=== PATIENT | male | born 1985 | race Caucasian/White ===

== ENCOUNTER → 2019-08-01 | Outpatient (CLI) | payer BC ==
--- NOTE | 2019-08-01 23:29 | MR ---
EXAMINATION TYPE: MR lumbar spine wo/w con DATE OF EXAM: 08/01/2019 COMPARISON: None HISTORY: Sprain of ligaments of lumbar spine TECHNIQUE: Multiplanar, multisequence images of the lumbar spine were acquired utilizing 9.5 mL intravenous Gada vist gadolinium contrast. Lumbar vertebra have normal alignment. Disc spaces are fairly normal. There is no compression fractur e. There is no lumbar or spinal mass. The neuroforamina are fairly well-maintained. There is a small posterior disc bulge at L4-5. There is no spinal stenosis. Upper sacroiliac joints appear intact. The contrast images show no pathologic enhancement. There is nonanatomic increased signal in the right paraspinal region on the L4-5 level. This is thoug ht to be artifactual. IMPRESSION: Minute posterior disc bulging at L4-5. Otherwise negative exam.
== END | disposition home or self-care (01) ==
LOC: RADMRIMAIN 15:26
PROVIDERS: ATTEND Family Medicine
DX: M51.86 Other intervertebral disc disorders, lumbar region (principal)
CPT/HCPCS: 72158; A9585

== ENCOUNTER 2019-08-13 03:04 | Emergency (ER) | payer BC, OTHER ==
[2019-08-13 03:14] VITALS: BP 129/81; PULSE 64; RESP 20; TEMP 97.9
[2019-08-13] MEDS ORDERED: KETOROLAC 30 MG/ML 1 ML VIAL IM STA (03:25)
[2019-08-13] MEDS ORDERED: ACET/COD 300 MG/30 MG STARTER PACK 6 TAB BTL PO STA (03:25)
[2019-08-13] MEDS ORDERED: PENICILLIN VK 500MG STARTER 4 TAB BTL PO STA (03:26)
--- NOTE | 2019-08-13 03:28 | ED ---
ENT HPI - General Chief complaint: Dental/Oral Stated complaint: Oral/Throat Pain Time Seen by Provider: 08/13/19 03:22 Source: patient Mode of arrival: ambulatory Limitations: no limitations - History of Present Illness Initial comments: 33-year-old male patient presents to the emergency department today for evaluation of left-sided dental pain. Patient states he started having dental pain approximately 2 days ago. States this evening he developed swelling to the left side of his face. States he is having some increased pain with opening and closing his mouth. Denies any difficulty swallowing. Denies nausea or vomiting. Denies fever or chills. Patient states he does have a broken tooth in the back. States his dental insurance kicks in in August so he has been unable to go to the dentist. States he has been taking Tylenol Motrin with little relief. Patient denies any recent rash, shortness breath, chest pain, abdominal pain, diarrhea, constipation, back pain, numbness, tingling, dizziness, weakness, hematuria, dysuria, urinary urgency, urinary frequency, headache, visual changes, or any other complaints. - Related Data Previous Rx's Medication Instructions Recorded Naproxen [Naprosyn] 500 mg PO Q12HR PRN #20 tab 08/31/15 Naproxen [EC-Naprosyn] 500 mg PO BID PRN #30 tablet. 08/13/19 Penicillin V Potassium [Pen Vee K] 500 mg PO Q6H #40 tablet 08/13/19 Allergies Allergy/AdvReac Type Severity Reaction Status Date / Time No Known Allergies Allergy Verified 08/13/19 03:14 Review of Systems ROS Statement: Those systems with pertinent positive or pertinent negative responses have been documented in the HPI. ROS Other: All systems not noted in ROS Statement are negative. Past Medical History Past Medical History: No Reported History History of Any Multi-Drug Resistant Organisms: None Reported Past Surgical History: No Surgical Hx Reported Past Psychological History: No Psychological Hx Reported Smoking Status: Never smoker Past Alcohol Use History: None Reported Past Drug Use History: None Reported General Exam Limitations: no limitations General appearance: alert, in no apparent distress, other (Physical well- developed, well-nourished adult male patient in no acute distress. Vital signs upon presentation are temperature 97.9F, pulse 64, respirations 20, blood pressure 129/81, pulse ox 98% on room air.) ENT exam: Present: mucous membranes moist. Absent: normal exam, normal oropharynx (Left rear Molar is fractured. There is surrounding gingival erythema and hyperplasia. No evidence of drainable abscess.) Respiratory exam: Present: normal lung sounds bilaterally. Absent: respiratory distress, wheezes, rales, rhonchi, stridor Cardiovascular Exam: Present: regular rate, normal rhythm, normal heart sounds. Absent: systolic murmur, diastolic murmur, rubs, gallop, clicks Neurological exam: Present: alert, oriented X3, CN II-XII intact Psychiatric exam: Present: normal affect, normal mood Skin exam: Present: warm, dry, intact, normal color. Absent: rash Course Vital Signs 08/13/19 03:12 Temperature 97.9 F Pulse Rate 64 Respiratory 20 Rate Blood Pressure 129/81 O2 Sat by Pulse 98 Oximetry Medical Decision Making - Medical Decision Making 33-year-old male patient presented to the emergency department today for e valuation of left-sided dental pain. Physical examination did reveal fractured tooth to the left rear molar. Surrounding gingival erythema and hyperplasia. No evidence of drainable abscess. There is left-sided facial swelling. He is afebrile normal vital signs. He'll be given pain medication here in the emergency department. Started on penicillin. He is given a dental clinic follow-up. Return parameters were discussed in detail. He verbalizes understanding and agrees with this plan. Disposition Clinical Impression: Dental abscess Disposition: HOME SELF-CARE Condition: Good Instructions (If sedation given, give patient instructions): Dental Abscess (ED) Additional Instructions: Complete antibiotic prescription and full. Take medications as directed for pain relief. Follow-up with the dentist as soon as possible. Follow up with your primary care physician for recheck in 1-2 days. Return to the emergency department immediately for any new, worsening, or concerning symptoms. Please follow up with the [facility] dental clinic. [facility] [place] [address]. Phone number for new patients or [phone] for existing patients. OR [facility]. Must pay for x-rays then services are free. Call for an appoitnment. Prescriptions: Naproxen [EC-Naprosyn] 500 mg PO BID PRN #30 tablet.dr MARCIAL Reason: Pain Penicillin V Potassium [Pen Vee K] 500 mg PO Q6H #40 tablet Is patient prescribed a controlled substance at d/c from ED?: No Referrals: Osito Andrew MD [Primary Care Provider] - 1-2 days Time of Disposition: 03:27
== END 2019-08-13 04:06 | disposition home or self-care (01) ==
LOC: EC 03:04
DX: K04.7 Periapical abscess without sinus (principal)
CPT/HCPCS: 99282; 96372; J1885

== ENCOUNTER 2021-03-22 22:16 | Emergency (ER) | payer OTHER ==
[2021-03-22] MEDS ORDERED: MORPHINE SULFATE 4 MG/ML SYRINGE IV STA (22:37)
[2021-03-22] MEDS ORDERED: SODIUM CHLORIDE 0.9% 1,000 ML IV STA (22:37)
--- NOTE | 2021-03-22 22:38 | ED ---
Abdominal Pain HPI - General Chief Complaint: Abdominal Pain Stated Complaint: upper abdominal pain Time Seen by Provider: 03/22/21 22:37 Source: patient Mode of arrival: ambulatory Limitations: no limitations - Related Data Previous Rx's Medication Instructions Recorded Naproxen [Naprosyn] 500 mg PO Q12HR PRN #20 tab 08/31/15 Naproxen [EC-Naprosyn] 500 mg PO BID PRN #30 tablet. 08/13/19 Penicillin V Potassium [Pen Vee K] 500 mg PO Q6H #40 tablet 08/13/19 Allergies Allergy/AdvReac Type Severity Reaction Status Date / Time No Known Allergies Allergy Verified 03/22/21 22:23 Review of Systems ROS Statement: Those systems with pertinent positive or pertinent negative responses have been documented in the HPI. ROS Other: All systems not noted in ROS Statement are negative. Past Medical History Past Medical History: No Reported History Additional Past Medical History / Comment(s): lt spontaneous pneumothorax History of Any Multi-Drug Resistant Organisms: None Reported Past Surgical History: No Surgical Hx Reported Past Psychological History: No Psychological Hx Reported Smoking Status: Never smoker Past Alcohol Use History: None Reported Past Drug Use History: None Reported General Exam Limitations: no limitations Course Vital Signs 03/22/21 22:18 Temperature 98.1 F Pulse Rate 88 Respiratory 20 Rate Blood Pressure 135/75 O2 Sat by Pulse 99 Oximetry Medical Decision Making - Lab Data Result diagrams: 03/22/21 23:15 03/22/21 23:15 Lab Results 03/22/21 03/22/21 03/22/21 Range/Units 23:15 23:15 23:15 WBC 8.4 (3.8-10.6) k/uL RBC 5.25 (4.30-5.90) m/uL Hgb 16.0 (13.0-17.5) gm/dL Hct 45.6 (39.0-53.0) % MCV 86.7 (80.0-100.0) fL MCH 30.4 (25.0-35.0) pg MCHC 35.0 (31.0-37.0) g/dL RDW 12.7 (11.5-15.5) % Plt Count 263 (150-450) k/uL MPV 7.3 Neutrophils % 57 % Lymphocytes % 33 % Monocytes % 5 % Eosinophils % 3 % Basophils % 1 % Neutrophils # 4.8 (1.3-7.7) k/uL Lymphocytes # 2.8 (1.0-4.8) k/uL Monocytes # 0.4 (0-1.0) k/uL Eosinophils # 0.2 (0-0.7) k/uL Basophils # 0.1 (0-0.2) k/uL Sodium 140 (137-145) mmol/L Potassium 4.2 (3.5-5.1) mmol/L Chloride 106 (98-107) mmol/L Carbon Dioxide 27 (22-30) mmol/L Anion Gap 7 mmol/L BUN 15 (9-20) mg/dL Creatinine 1.02 (0.66-1.25) mg/dL Est GFR (CKD-EPI)AfAm >90 (>60 ml/min/1.73 sqM) Est GFR (CKD-EPI)NonAf >90 (>60 ml/min/1.73 sqM) Glucose 135 H (74-99) mg/dL Calcium 9.5 (8.4-10.2) mg/dL Total Bilirubin 0.3 (0.2-1.3) mg/dL AST 35 (17-59) U/L ALT 31 (4-49) U/L Alkaline Phosphatase 64 (38-126) U/L Total Protein 7.1 (6.3-8.2) g/dL Albumin 4.4 (3.5-5.0) g/dL Amylase 39 (30-110) U/L Lipase 139 (23-300) U/L Urine Color Yellow Urine Appearance Clear (Clear) Urine pH 5.5 (5.0-8.0) Ur Specific [place] 1.026 (1.001-1.035) Urine Protein Trace H (Negative) Urine Glucose (UA) Negative (Negative) Urine Ketones Negative (Negative) Urine Blood Negative (Negative) Urine Nitrite Negative (Negative) Urine Bilirubin Negative (Negative) Urine Urobilinogen <2.0 (<2.0) mg/dL Ur Leukocyte Esterase Negative (Negative) Disposition Clinical Impression: Abdominal pain, Gastritis Disposition: HOME SELF-CARE Condition: Good Instructions (If sedation given, give patient instructions): Gastritis (ED) Is patient prescribed a controlled substance at d/c from ED?: No Referrals: None,Stated [Primary Care Provider] - 1-2 days
[2021-03-22 23:26] LABS: Appearance,Urine Clear (Clear); Basophils # (A) 0.1 k/uL (0-0.2); Basophils % (A) 1 %; Bilirubin,Urine Negative (Negative); Blood,Urine Negative (Negative); Color,Urine Yellow; Eosinophils # (A) 0.2 k/uL (0-0.7); Eosinophils % (A) 3 %; Glucose,Urine (UA) Negative (Negative); HCT 45.6 % (39.0-53.0); Ketones,Urine Negative (Negative); Leukocyte Esterase,Urine Negative (Negative); Lymphocytes # (A) 2.8 k/uL (1.0-4.8); Lymphocytes % (A) 33 %; MCH 30.4 pg (25.0-35.0); MCV 86.7 fL (80.0-100.0); Mean Platelet Volume 7.3; Monocytes # (A) 0.4 k/uL (0-1.0); Monocytes % (A) 5 %; Neutrophils # (A) 4.8 k/uL (1.3-7.7); Neutrophils % (A) 57 %; Nitrite,Urine Negative (Negative); PH, Urine 5.5 (5.0-8.0); Platelet Count 263 k/uL (150-450); Protein,Urine Trace (Negative); RBC 5.25 m/uL (4.30-5.90); RDW 12.7 % (11.5-15.5); Specific Gravity,Urine 1.026 (1.001-1.035); Urobilinogen,Urine <2.0 mg/dL (<2.0); WBC 8.4 k/uL (3.8-10.6)
[2021-03-22 23:36] LABS: ALT 31 U/L (4-49); AST 35 U/L (17-59); African American GFR (CKD) >90 (>60 ml/min/1.73 sqM); Albumin 4.4 g/dL (3.5-5.0); Alkaline Phosphatase 64 U/L (38-126); Amylase 39 U/L (30-110); Anion Gap 7 mmol/L; Blood Urea Nitrogen 15 mg/dL (9-20); Calcium 9.5 mg/dL (8.4-10.2); Carbon Dioxide 27 mmol/L (22-30); Chloride 106 mmol/L (98-107); Glucose 135 mg/dL (74-99); Lipase 139 U/L (23-300); Non-African American GFR(CKD) >90 (>60 ml/min/1.73 sqM); Potassium 4.2 mmol/L (3.5-5.1); Sodium 140 mmol/L (137-145); Total Bilirubin 0.3 mg/dL (0.2-1.3); Total Protein 7.1 g/dL (6.3-8.2)
--- NOTE | 2021-03-23 00:14 | US ---
EXAMINATION TYPE: US gallbladder DATE OF EXAM: 03/23/2021 COMPARISON: NONE CLINICAL HISTORY: abdominal pain. abd pain after eating for over 1 month, last ate 5hrs prior to this exam EXAM MEASUREMENTS: Liver Length: 14.0 cm Gallbladder Wall: 0.2 cm CBD: 0.5 cm Right Kidney: 10.3 x 5.0 x 5.7 cm *8ocerlying bowel gas limits exam Pancreas: not seen due to bowel gas Liver: limited intercostal views appear wnl Gallbladder: wnl Evidence for sonographic Avery's sign: no CBD: wnl Right Kidney: wnl IMPRESSION: No focal liver defect. No gallstones or dilated ducts.
[2021-03-23] MEDS ORDERED: PANTOPRAZOLE 40 MG/10 ML VIAL IVP STA (00:21)
[2021-03-23] MEDS ORDERED: MAG HYDROX/AL HYDROX/SIMETH 30 ML, HYOSCYAMINE ELIXIR 10 ML PO STA ×2 (00:21)
[2021-03-23 01:08] VITALS: RESP 18
--- NOTE | 2021-03-23 01:17 | CT ---
EXAMINATION TYPE: CT abdomen pelvis w con DATE OF EXAM: 03/23/2021 COMPARISON: HISTORY: Upper Abd Pain CT DLP: 1152.90 mGycm Automated exposure control for dose reduction was used. CONTRAST: Performed with IV Contrast, patient injected with 100 mL of Isovue 300. Images obtained from the diaphragm to the floor the pelvis with IV contrast. Lung bases are clear of consolidation. There is no pleural effusion. Heart size is fairly normal. The re is no pericardial effusion. Liver spleen stomach pancreas gallbladder appear normal. Bile ducts ar e not dilated. There is no adrenal mass. Kidneys show satisfactory contrast opacification. There is no hydronephrosi s. Ureters are not dilated. There is no retroperitoneal adenopathy. Appendix is posterior and appears normal. Bladder distends smoothly. There is no inguinal hernia. There is no free fluid in the pelvis . There is no evidence of pelvic mass. There is no mesenteric edema. There is no ascites or free air. There is no bowel obstruction. Lumbar vertebra have normal alignment. Posterior elements are intact. There is no compression fractur e. The bony pelvis is intact. The hip joints are intact. IMPRESSION: Negative CT scan abdomen and pelvis. Normal appendix.
[2021-03-23 01:53] VITALS: BP 122/88; PULSE 83; TEMP 97.6
== END 2021-03-23 01:45 | disposition home or self-care (01) ==
LOC: EC 22:16
DX: K29.70 Gastritis, unspecified, without bleeding (principal)
CPT/HCPCS: 36415; 80053; 82150; 83690; 85025; 81003; 76705; 74177; 99284; 96374; 96375; 96361 ×2; J2270; C9113; Q9967

== ENCOUNTER → 2021-07-28 | Outpatient (CLI) | payer OTHER ==
--- NOTE | 2021-07-28 18:08 | US ---
EXAMINATION TYPE: US extremity nonvasc complete LT DATE OF EXAM: 07/28/2021 COMPARISON: NONE CLINICAL HISTORY: 35-year-old male M25.562 Pain in left knee. x 8 years TECHNIQUE: Multiple sonographic images of the left popliteal fossa at the site of patient's pain. Findings: No mass or Bakers cyst seen in left popliteal space (area of pain) IMPRESSION: No Montano's cyst or other mass identified in the left popliteal fossa which corresponds to the site of patient's pain. If symptoms persist, consider MRI.
== END | disposition home or self-care (01) ==
LOC: RADUSWWP 14:09
PROVIDERS: ATTEND Physician Assistant
DX: M25.562 Pain in left knee (principal)

== ENCOUNTER 2022-10-03 15:44 | Emergency (ER) | payer OTHER ==
[2022-10-03 16:16] VITALS: BP 133/69; PULSE 108; RESP 22; TEMP 99.5
--- NOTE | 2022-10-03 18:08 | XR ---
EXAMINATION TYPE: XR chest 2V DATE OF EXAM: 10/03/2022 COMPARISON: NONE HISTORY: Short of breath TECHNIQUE: 2 views FINDINGS: Heart and mediastinum are normal. Lungs are clear. Diaphragm is normal. Bony thorax is inta ct IMPRESSION: Normal chest.
--- NOTE | 2022-10-03 19:30 | ED ---
URI HPI - General Chief Complaint: Upper Respiratory Infection Stated Complaint: Cough Time Seen by Provider: 10/03/22 17:45 Source: patient Mode of arrival: ambulatory Limitations: no limitations - History of Present Illness Initial Comments: Patient is a 37-year-old male presents to the emergency department with a chief complaint of cough. Patient reports a sinus infection for the past 10 days. With past couple days he has developed a productive cough with yellow sputum. He reports fever. Has not taken any Tylenol or Motrin today. Denies chest pain, shortness of breath, nausea, vomiting. Denies tobacco use. Denies history of asthma and COPD. - Related Data Previous Rx's Medication Instructions Recorded Naproxen [Naprosyn] 500 mg PO Q12HR PRN #20 tab 08/31/15 Naproxen [EC-Naprosyn] 500 mg PO BID PRN #30 tablet. 08/13/19 Penicillin V Potassium [Pen Vee K] 500 mg PO Q6H #40 tablet 08/13/19 Amoxic-Pot Clav 875-125Mg 1 tab PO BID 7 Days #14 tab 10/03/22 [Augmentin 875-125] Ibuprofen [Motrin] 800 mg PO Q6HR PRN #30 tab 10/03/22 methylPREDNISolone Dose Pack 4 mg PO DIRECTED #21 tab 10/03/22 [Medrol Dose Pack] Allergies Allergy/AdvReac Type Severity Reaction Status Date / Time No Known Allergies Allergy Verified 10/03/22 16:16 Review of Systems ROS Statement: Those systems with pertinent positive or pertinent negative responses have been documented in the HPI. ROS Other: All systems not noted in ROS Statement are negative. Past Medical History Past Medical History: No Reported History Additional Past Medical History / Comment(s): lt spontaneous pneumothorax History of Any Multi-Drug Resistant Organisms: None Reported Past Surgical History: No Surgical Hx Reported Past Psychological History: No Psychological Hx Reported Smoking Status: Never smoker Past Alcohol Use History: None Reported Past Drug Use History: None Reported General Exam Limitations: no limitations General appearance: alert, in no apparent distress Head exam: Present: atraumatic, normocephalic, normal inspection, other (Frontal tenderness) Eye exam: Present: normal appearance, PERRL, EOMI. Absent: scleral icterus, conjunctival injection, periorbital swelling Respiratory exam: Present: normal lung sounds bilaterally. Absent: respiratory distress, wheezes, rales, rhonchi, stridor Cardiovascular Exam: Present: regular rate, normal rhythm, normal heart sounds. Absent: systolic murmur, diastolic murmur, rubs, gallop, clicks Neurological exam: Present: alert, oriented X3, CN II-XII intact Psychiatric exam: Present: normal affect, normal mood Skin exam: Present: warm, dry, intact, normal color. Absent: rash Course Vital Signs 10/03/22 16:15 Temperature 99.5 F Pulse Rate 108 H Respiratory 22 Rate Blood Pressure 133/69 O2 Sat by Pulse 98 Oximetry Medical Decision Making - Medical Decision Making This is a 37-year-old male presenting with cough and congestion. Symptomology and physical exam consistent with sinusitis. Afebrile. No abnormal lung sounds. Chest x-ray obtained and interpreted by me which is negative for acute cardiopulmonary process. Given patient's long duration of symptoms I will treat this is a bacterial sinusitis. Patient to follow-up with his primary care provider. Dr. Capm is my attending. - Lab Data Lab Results 10/03/22 10/03/22 Range/Units 16:19 16:19 Coronavirus (PCR) Not Detected (Not Detectd) Influenza Type A RNA Not Detected (Not Detectd) Influenza Type B (PCR) Not Detected (Not Detectd) Disposition Clinical Impression: Sinusitis, Cough Disposition: HOME SELF-CARE Condition: Good Instructions (If sedation given, give patient instructions): Sinusitis (ED) Additional Instructions: Take medication as directed. Increasing water intake will help thin mucus and improved congestion. Warm showers and humidifiers may also help desk intern symptoms. Follow up with primary care provider in one to 2 days. Return to the emergency department if you experience new, concerning, or worsening symptoms. Prescriptions: Amoxic-Pot Clav 875-125Mg [Augmentin 875-125] 1 tab PO BID 7 Days #14 tab methylPREDNISolone Dose Pack [Medrol Dose Pack] 4 mg PO DIRECTED #21 tab Ibuprofen [Motrin] 800 mg PO Q6HR PRN #30 tab PRN Reason: Pain Is patient prescribed a controlled substance at d/c from ED?: No Referrals: [facility] [Primary Care Provider] - 1-2 days Time of Disposition: 19:30
== END 2022-10-03 20:07 | disposition home or self-care (01) ==
LOC: EC 15:44
DX: J32.9 Chronic sinusitis, unspecified (principal); Z20.822 Contact with and (suspected) exposure to COVID-19
CPT/HCPCS: 71046; 87502; 87635; 99283